=== PATIENT | female | born 1980 | race Caucasian/White ===

== ENCOUNTER 2019-03-26 18:42 | Emergency (ER) | payer MEDICAID ==
[~2019-03-26] VITALS: Ht 147.3 cm; Wt 93.2 kg
[2019-03-26] MEDS ORDERED: morphine 4 MG/ML inj SYRINge IV ONE (19:55)
[2019-03-26] MEDS ORDERED: TETanus/Pertussis (Acell)/Diphther VAC/PF (Tdap-Adult) 0.5ml syringe IM ONE (19:55)
[2019-03-26] MEDS ORDERED: normal saline 1000ML IV soln IVB ONE (19:55)
[2019-03-26] MEDS ORDERED: LORazepam 2 mg/ml vial IV ONE (19:55)
[2019-03-26 20:35] LABS: ALBUMIN 3.2 G/DL (3.4-5.0); ANION GAP 9 (8-16); BLOOD UREA NITROGEN 7 MG/DL (7-18); CALCIUM 8.8 MG/DL (8.5-10.1); CHLORIDE 106 MMOL/L (99-107); GLUCOSE 107 MG/DL (70-104); POTASSIUM 3.7 MMOL/L (3.5-5.1); SODIUM 138 MMOL/L (135-145); TOTAL CARBON DIOXIDE 22.7 MMOL/L (24-32)
[2019-03-26 20:37] LABS: BUN/CREATININE RATIO 8.1 (6.6-38.0); CREATININE 0.86 MG/DL (0.40-0.90); eGFR 74 ML/MIN
[2019-03-26] MEDS ORDERED: iohexol 300mg/ml 100ml inj. ONE (20:45)
--- NOTE | 2019-03-26 20:53 | NUR ---
DAD IS PT SAFE DISCHARGE. AANHI (PALAK PANTOJA) PHONE NUMBER IS: HOME [phone] AND CELL [phone].
[2019-03-26 22:21] VITALS: BP 120/71
== END 2019-03-26 22:24 | disposition home or self-care (01) ==
LOC: ER 18:43 → EEVIPCON 18:43 → ER 22:24
DX: S80.02XA Contusion of left knee, initial encounter (principal); S80.12XA Contusion of left lower leg, initial encounter; R07.81 Pleurodynia; R51 Headache; M79.672 Pain in left foot; I10 Essential (primary) hypertension; E07.9 Disorder of thyroid, unspecified; F31.9 Bipolar disorder, unspecified; F17.200 Nicotine dependence, unspecified, uncomplicated; F15.90 Other stimulant use, unspecified, uncomplicated; F11.90 Opioid use, unspecified, uncomplicated; Y04.0XXA Assault by unarmed brawl or fight, initial encounter; Y93.89 Activity, other specified; Y92.098 Other place in other non-institutional residence as the place of occurrence of the external cause; Y99.8 Other external cause status
CPT/HCPCS: 36415; 73560; 73590; 73600; 73630; 74177; 80048; 90471; 90715; 96374; 96375; 99284; J2060; J2270; J7040; Q9967

== ENCOUNTER 2019-04-24 09:25 | Emergency (ER) | payer MEDICAID ==
[~2019-04-24] VITALS: Ht 147.3 cm; Wt 88.6 kg
--- NOTE | 2019-04-24 10:18 | NUR ---
awaiting ed md.
[2019-04-24] MEDS ORDERED: ketorolac tromethamine 15mg/ml inj. IM ONE (10:55)
[2019-04-24 11:36] VITALS: BP 143/73
[2019-04-29] MEDS ORDERED: IBUP-1984 PO (09:32)
== END 2019-04-24 11:37 | disposition home or self-care (01) ==
LOC: ER 09:26
DX: S06.0X0A Concussion without loss of consciousness, initial encounter (principal); I10 Essential (primary) hypertension; E07.9 Disorder of thyroid, unspecified; E31.9 Polyglandular dysfunction, unspecified; F15.90 Other stimulant use, unspecified, uncomplicated; F11.90 Opioid use, unspecified, uncomplicated; X58.XXXA Exposure to other specified factors, initial encounter; Y93.89 Activity, other specified; Y92.89 Other specified places as the place of occurrence of the external cause; Y99.8 Other external cause status
CPT/HCPCS: 70450; 72125; 96372; 99284; J1885